=== PATIENT | male | born 1995 | race Caucasian/White ===

== ENCOUNTER 2019-01-17 16:17 | Emergency (ER) | payer MEDICAID, OTHER ==
[~2019-01-17] VITALS: Ht 175.3 cm; Wt 107.0 kg
[~2019-01-17 16:17] MED LIST: NEOM10SO7 OT
[2019-01-17 16:26] VITALS: BP 132/82
[2019-01-17] MEDS ORDERED: TETanus/Pertussis (Acell)/Diphther VAC/PF (Tdap-Adult) 0.5ml syringe IM ONE (16:55)
--- NOTE | 2019-01-17 17:22 | NUR ---
PATIENT STATES HE WAS HIT ON THE HEAD WITH FENCE EQUIPMENT EARLIER TODAY WHEN PUTTING UP A FENCE AT WORK. LAC TO RIGHT PARIETAL AREA WITH SMALL AMOUNT SEROSANGUINOUS BLEEDING NOTED. DENIES LOSS OF CONSCIOUSNESS.
== END 2019-01-17 18:49 | disposition home or self-care (01) ==
LOC: ER 16:17
DX: S01.01XA Laceration without foreign body of scalp, initial encounter (principal); F12.90 Cannabis use, unspecified, uncomplicated; W23.0XXA Caught, crushed, jammed, or pinched between moving objects, initial encounter; Y93.89 Activity, other specified; Y92.69 Other specified industrial and construction area as the place of occurrence of the external cause; Y99.9 Unspecified external cause status
CPT/HCPCS: 12002; 12013; 90471; 99283

== ENCOUNTER 2019-01-28 17:31 | Emergency (ER) | payer OTHER ==
[~2019-01-28] VITALS: Ht 175.3 cm; Wt 107.0 kg
--- NOTE | 2019-01-28 18:22 | NUR ---
PATIENT HAS EIGHT SHANNON TO A WELL APPROXIMATED LACERATION TO SUPERIOR RIGHT HEAD. PER PA EIGHT SHANNON REMOVED: NO BLEEDING NO SWELLING NOTED PATIENT DENIES PAIN
[2019-01-28 18:43] VITALS: BP 108/66
== END 2019-01-28 18:30 | disposition home or self-care (01) ==
LOC: ER 17:32
DX: S01.01XD Laceration without foreign body of scalp, subsequent encounter (principal); F12.90 Cannabis use, unspecified, uncomplicated; Z79.2 Long term (current) use of antibiotics; X58.XXXD Exposure to other specified factors, subsequent encounter
CPT/HCPCS: 99281

== ENCOUNTER 2019-07-04 09:31 | Emergency (ER) | payer OTHER ==
[~2019-07-04] VITALS: Ht 177.8 cm; Wt 109.1 kg
[2019-07-04 09:33] VITALS: BP 143/89
[2019-07-04] MEDS ORDERED: AMOX500C2 PO (10:03)
[2019-07-04] MEDS ORDERED: CHLO473M3 PO (10:03)
[2019-07-04] MEDS ORDERED: IBUP-1985 PO (10:03)
[2019-07-04] MEDS ORDERED: ibuprofen 200mg tablet PO ONE (10:05)
== END 2019-07-04 10:17 | disposition home or self-care (01) ==
LOC: ER 09:31
DX: K08.89 Other specified disorders of teeth and supporting structures (principal); K02.9 Dental caries, unspecified; F12.90 Cannabis use, unspecified, uncomplicated
CPT/HCPCS: 99283